=== PATIENT | female | born 1945 | race Caucasian/White ===

== ENCOUNTER 2018-09-17 18:43 | Emergency (ER) | payer MEDICARE ==
[2018-09-17 19:14] VITALS: BP 145/65
--- NOTE | 2018-09-17 19:17 | UC ---
Lower Extremity/Ankle HPI - HPI Summary HPI Summary: RIGHT ANKLE INJURY. PAIN OUTER ASPECT. PT SLIPPED WHILE GETTING ON A HORSE THIS EVENING AND ROLLED HER ANKLE - History of Current Complaint Chief Complaint: UCLowerExtremity Stated Complaint: RIGHT ANKLE INJURY Time Seen by Provider: 09/17/18 19:07 Hx Obtained From: Patient ?: No Onset/Duration: Sudden Onset, Lasting Hours Severity Initially: Severe Severity Currently: Severe Pain Intensity: 7 Aggravating Factor(s): Standing, Ambulation Alleviating Factor(s): Rest Able to Bear Weight: No - Allergies/Home Medications Allergies/Adverse Reactions: Allergies Allergy/AdvReac Type Severity Reaction Status Date / Time Sulfa (Sulfonamide Allergy Unknown GI Upset Verified 09/17/18 18:58 Antibiotics) Home Medications: Home Medications Aspirin 81 mg CHEW TAB* [Aspirin Low Dose TAB*] 81 mg PO DAILY 09/17/18 [ History Confirmed 09/17/18] Atorvastatin* [Lipitor*] 20 mg PO DAILY 09/17/18 [History Confirmed 09/17/18] Cholecalciferol TAB* [Vitamin D TAB*] 1,000 unit PO DAILY 09/17/18 [History Confirmed 09/17/18] Diclofenac Sodium 50 mg PO BID 09/17/18 [History Confirmed 09/17/18] Fesoterodine (NF) [Toviaz (NF)] 8 mg PO DAILY 09/17/18 [History Confirmed ] Metoprolol Succinate [Toprol Xl] 25 mg PO DAILY 09/17/18 [History Confirmed ] Multivit-Min/Iron/Folic/Lutein [Centrum Silver Women Tablet] 1 each PO 09/17/18 [History] Venlafaxine EXT RELEASE CAP* [Effexor Xr CAP*] 37.5 mg PO DAILY 09/17/18 [ History Confirmed 09/17/18] PMH/Surg Hx/FS Hx/Imm Hx Previously Healthy: Yes - Surgical History Surgical History: Yes Surgery Procedure, Year, and Place: LEFT BREAST LUMPECTOMY. LEFT KNEE REPLACEMENT. FRACTURE PATELLA. KIDNEY STONE LIPOTRIPSY - Family History Known Family History: Positive: Hypertension - Social History Alcohol Use: Occasionally Substance Use Type: None Smoking Status (MU): Never Smoked Tobacco Review of Systems All Other Systems Reviewed And Are Negative: Yes Musculoskeletal: Positive: Arthralgia, Edema, Myalgia Physical Exam Appearance: Well-Appearing, Pain Distress, Obese Vital Signs: Initial Vital Signs Temp 97.8 F 09/17/18 19:04 Pulse 69 09/17/18 19:04 Resp 18 09/17/18 19:04 BP 145/65 09/17/18 19:04 Pulse Ox 98 09/17/18 19:04 Vital Signs Reviewed: Yes Eye Exam: Normal ENT Exam: Normal Dental Exam: Normal Neck exam: Normal Respiratory Exam: Normal Cardiovascular Exam: Normal Abdominal Exam: Normal Musculoskeletal: Positive: Strength Limited @ - hard to bear weight, ROM Limited @ - due to pain in eversion, Edema @ - laeral aspect Neurological Exam: Normal Psychological Exam: Normal Skin Exam: Normal Lower Extremity Course/Dx - Course Course Of Treatment: hx obtained, exam performed, meds reviewed, xray obtained. - Differential Dx/Diagnosis Differential Diagnosis/HQI/PQRI: Contusion, Dislocation, Fracture (Closed), Sprain, Strain Provider Diagnosis: Right ankle sprain Discharge - Sign-Out/Discharge Documenting (check all that apply): Patient Departure All imaging exams completed and their final reports reviewed: No Studies - Discharge Plan Condition: Stable Disposition: HOME Patient Education Materials: Ankle Sprain (ED) Referrals: Marsha Landon MD [Primary Care Provider] - Additional Instructions: 1. ice for 24 hours, 2. Continue with Naproxen as needed. 3. Jun wrap for swelling and elevate the foot 4. Warm water soaks and strengthening as we talked about with resistance bands and towel scrunches, can start in 2-3 days 5. Follow up if not improving - Billing Disposition and Condition Condition: STABLE Disposition: Home
== END 2018-09-17 20:33 | disposition home or self-care (01) ==
LOC: UCCORT 18:43
DX: S93.401A Sprain of unspecified ligament of right ankle, initial encounter (principal); W18.49XA Other slipping, tripping and stumbling without falling, initial encounter; Y93.89 Activity, other specified; Y92.9 Unspecified place or not applicable; Z96.651 Presence of right artificial knee joint
CPT/HCPCS: 99202; G0463

== ENCOUNTER 2019-04-26 19:45 | Emergency (ER) | payer MEDICARE ==
--- OUTSIDE RECORDS SUMMARY | 2019-04-26 19:54 | XMS REPORT | Continuity of Care Document ---
:1945 External Reference #:[id number] Author Name Martha Orlando, HUMAN RESOURCES FILE CLERK Address [address] [place] [id number] Care Team Providers Name Role Phone Yeimy Jackson MD - Hematology & Care Team Information Lens Examiner Oncology Gray Krishnan DR - Urology Care Team Information Lens Examiner [phone] Candelario Reich MD - MOHS-Micrographic Care Team Information Lens Examiner Surgery Problems Active Problems Provider Date Urinary incontinence Shannon Jimenez MD Onset: 04/24/2013 Kidney stone Shannon Jimenez MD Onset: 04/09/2011 Vitamin D deficiency Shannon Jimenez MD Onset: 04/07/2010 Degenerative joint disease involving multiple Shannon Jimenez MD Onset: joints Mixed hyperlipidemia Marsha Landon MD Onset: 01/13/2016 Personal history of primary malignant neoplasm Marsha Landon MD Onset: of breast Impaired fasting glycaemia Marsha Landon MD Onset: 04/04/2017 Mild major depression, single episode Marsha Landon MD Onset: 07/28/2017 Chronic kidney disease stage 3 Marsha Landon MD Onset: 02/06/2018 Morbid obesity Marsha Landon MD Onset: 05/23/2018 Social History Type Date Description Comments Sex Unknown ETOH Use Rarely consumes alcohol Tobacco Use Start: Unknown Patient has never smoked Recreational Drug Use Denies Drug Use Smoking Status Reviewed: 04/10/19 Patient has never smoked Allergies, Adverse Reactions, Alerts Active Allergies Reaction Severity Comments Date Sulfa Drugs GI SXS 04/08/2014 Medications Active Medications SIG Qnty Indications Ordering Provider Date Toviaz 1 by mouth every 90tabs R32 Marsha Landon MD 12/28/2018 8mg Tablets ER day 24HR Venlafaxine HCL take 1 tablet by 90tabs F32.0 Marsha Landon MD 2016 75mg mouth every day Tablets Diclofenac Sodium take 1 tablet by 60tabs M15.9 Marsha Landon MD 2015 50mg mouth three Tablets DR times daily with food as needed Metoprolol Succinate 1 by mouth daily 90tabs Z01.818 Marsha Landon MD ER 25mg Tablets ER 24HR E78.2 Atorvastatin Calcium take 1 tablet by 90tabs E78.2 Marsha Landon MD 06/2013 20mg mouth daily Tablets Vitamin D 2 po daily with main E55.9 Marsha Landon MD (Cholecalciferol) meal with 1000Unit meat/fat/oil Tablets Aspirin Ec everyday Marsha Landon MD 81mg Tablets DR Centrum Silver 1 tablet once daily Unknown Tablets as vitamin supplement Immunizations CPT Code Status Date Vaccine Reaction Lot # [id number] Given 12/19/2016 Afluria Or Fluvirin Flu Vac Intramuscular 44501 Given 06/16/2015 Prevnar 13 Pneumococal Conjugate Vaccine Q2037 Given 04/22/2014 Fluvirin Immunization 86914 Given 12/21/2012 Afluria Or Fluvirin Flu Vac Intramuscular 56963 Given 10/06/2011 Zoster (Zostavax) GIVEN AT PHARMACY 55765 Given 04/09/2011 Pneumococcal 23 Immunization Adult Or Immunosuppressed Patient 59453 Given 02/20/2009 Afluria Or Fluvirin Flu Vac Intramuscular 93511 Given 01/31/2008 Afluria Or Fluvirin Flu Vac Intramuscular 81212 Given 01/31/2008 Afluria Or Fluvirin Flu Vac Intramuscular 01035 Given 01/31/2008 Afluria Or Fluvirin Flu Vac Intramuscular 36669 Given 01/09/2007 Afluria Or Fluvirin Flu Vac Intramuscular 85635 Given 12/01/2006 Tetanus And Diptheria Toxoid 7 Years And Older Preserv Free Q2039 Refused 02/06/2018 Flu Vaccine NOS 50870 Refused 02/06/2018 Shingrix (Shingles) Zoster Vaccine HZV, Recombinant , Subunit, Adj Vital Signs Date Vital Result Comment 04/10/2019 1:24pm Weight 370.00 lb Heart Rate 84 /min BP Systolic 130 mmHg BP Diastolic 72 mmHg Respiratory Rate 18 /min Height 66 inches 5'6" BMI (Body Mass Index) 59.7 kg/m2 Results Test Acquired Date Facility Test Result H/L Range Note Lipid Treatment 01/04/2019 [facility] Cholesterol 217 mg/dL High 50-199 1 Triglycerides 136 mg/dL 30-200 HDL 40 mg/dL 35-85 2 Chol/ HDL Ratio 5.4 ratio 3.7-5.6 VLDL 27 mg/dL 2-29 LDL (Calc) 150 mg/dL High 20-99 3 Alt 17 U/L 3-42 Ast 24 U/L 8-42 Basic (BMP) 01/04/2019 [facility] Sodium 140 mmol/L 135-146 4 Potassium 4.2 mmol/L 3.5-5.2 Chloride# 107 mmol/L 97-110 5 Carbon Dioxide 25 mmol/L 24-34 Glucose 107 mg/dL High 70-105 BUN 18 mg/dL 6-26 Creatinine 0.9 mg/dL 0.5-1.4 Calcium 9.1 mg/dL 8.5-10.5 6 Female Egfr 62 >60 7 Male Egfr 82 >60 8 Anion Gap 8 mmol/L 5-15 9 Hemoglobin A1c 01/04/2019 [facility] Hemoglobin A1c 6.2 % High 4.1-5.9 Estimated Average Glucose Calc 131 mg/dL 71-140 Laboratory test finding 01/04/2019 [facility] Vitamin D 25 Hydroxy 36 ng/mL 30-100 10 CBC with Auto Diff-fcmg 01/04/2019 [facility] WBC 6.9 K/uL 4.1-11.0 RBC 4.09 M/uL 4.00-5.40 Hemoglobin 12.9 gm/dL 12.0-16.0 Hematocrit 38.7 % 36.0-47.0 MCV 94.6 fL 80.0-97.0 MCH 31.6 pg 27.0-32.0 MCHC 33.4 g/dL 32.0-36.0 RDW 14.3 % 11.5-14.5 PLT Count 369 K/ul 140-400 MPV 8.0 FL 7.1-10.7 Neutrophil 60.2 % 35.0-75.0 Lymphocyte 28.1 % 16.0-52.0 Monocyte 8.4 % 2.0-10.0 Eosinophil 2.7 % 0.0-5.0 Basophil 0.6 % 0.0-4.0 Abs Neutrophils 4.1 K/uL 2.1-8.0 Abs Lymphocytes 1.9 K/uL 0.8-5.5 Abs Monocytes 0.6 K/uL 0.1-1.0 Abs Eosinophils 0.2 K/uL 0.0-0.5 Abs Basophils 0.0 K/uL 0.0-0.3 1 3 mos 2 Per NCEP ATP III Guidelines: Results lower than 40 mg/dL are suggestive of increased risk for coronary artery disease. Results > or = to 60 mg/dL are considered a negative risk factor. 3 Per NCEP ATP III Guidelines: Normal Population <130 Patients with medical conditions: CHD/DM Optimal: <100 Borderline high: 130-159 High: 160-189 Very high: >189 4 Updated reference range on new analyzer 5 Updated reference range on new analyzer 6 Updated reference range 07-19-2018 7 Concerning GFR Guidelines for Americans: Normal function or mild renal disease, if clinically at risk: >/= 60 mL/min Moderately decreased: 30-59 Severely decreased: 15-29 Renal failure: <15 There is reduced accuracy above 60ml/min/1.73 m squared, but the numeric value may be clinically useful in the near 60 range 8 Concerning GFR Guidelines: Normal function or mild renal disease, if clinically at risk: >/= 60 mL/min Moderately decreased: 30-59 Severely decreased: 15-29 Renal failure: <15 There is reduced accuracy above 60ml/min/1.73 m squared, but the numeric value may be clinically useful in the near 60 range Glomerular Filtration Rate (GFR) is estimated based on the CKD-EPI equation, which assumes a steady state for creatinine as recommended by the National Kidney Disease Education Program in conjunction with the National Institutes of Health and the National Kidney Foundation. Clinical conditions in which it may be necessary to measure GFR by using clearance methods include extremes of age and body size, severe malnutrition or obesity, diseases of skeletal muscle, paraplegia or quadriplegia, vegetarian diet, rapidly changing kidney function, and calculation of the dose of potentially toxic drugs that are excreted by the kidneys. 9 Updated Reference Range -2017 10 Clinical Guidelines for recommended serum 25(OH)Vitamin D Deficient at less than 20 ng/mL Insufficient at 20 to <30 ng/mL Sufficient at 30-100 ng/mL Toxicity at greater than 100 ng/mL Procedures Date Code Description Status 04/10/2019 86092 Electrocardiogram Complete Completed 11/16/2017 [id number] Mammogram Completed 07/07/2016 [id number] Bone Mineral Density Test Completed 06/17/2014 447189995 Bone Mineral Density Test Completed 04/18/2014 [id number] Mammogram Completed Medical Devices Description No Information Available Encounters Type Date Location Provider Dx Diagnosis Office Visit 01/09/2019 [facility] Marsha Landon MD E66.01 Morbid (severe) 1:30p obesity due to excess calories R32 Unspecified urinary incontinence N20.0 Calculus of kidney E55.9 Vitamin D deficiency, unspecified M15.9 Polyosteoarthritis, unspecified E78.2 Mixed hyperlipidemia Z85.3 Personal history of malignant neoplasm of breast R73.01 Impaired fasting glucose F32.0 Major depressive disorder, single episode, mild N18.3 Chronic kidney disease, stage 3 (moderate) Z12.31 Encntr screen mammogram for malignant neoplasm of breast D48.5 Neoplasm of uncertain behavior of skin Z68.43 Body mass index (BMI) 50.0-59.9, adult Assessments Date Code Description Provider 04/10/2019 Z01.818 Encounter for other preprocedural examination Martha Orlando NP 04/10/2019 H26.9 Unspecified cataract Martha Orlando NP 04/10/2019 R32 Urinary incontinence Martha Orlando NP 04/10/2019 N20.0 Kidney stone Martha Orlando NP 04/10/2019 E55.9 Vitamin D deficiency Martha Orlnado NP 04/10/2019 M15.9 Degenerative joint disease involving multiple Martha Orlando NP joints 04/10/2019 E78.2 Mixed hyperlipidemia Martha Orlando NP 04/10/2019 Z85.3 Personal history of malignant neoplasm of Martha Orlando NP breast 04/10/2019 R73.01 Impaired fasting glucose Martha Orlando NP 04/10/2019 F32.0 Major depressive disorder, single episode, Martha Orlando, VELMA mild 04/10/2019 N18.3 Chronic kidney disease, stage 3 (moderate) Martha Orlando, VELMA 01/09/2019 E66.01 Morbid (severe) obesity due to excess Marsha Landon MD calories 01/09/2019 R32 Urinary incontinence Marsha Landon MD 01/09/2019 N20.0 Kidney stone Marsha Landon MD 01/09/2019 E55.9 Vitamin D deficiency Marsha Landon MD 01/09/2019 M15.9 Degenerative joint disease involving multiple Marsha Landon MD joints 01/09/2019 E78.2 Mixed hyperlipidemia Marsha Landon MD 01/09/2019 Z85.3 Personal history of malignant neoplasm of Marsha Landon MD breast 01/09/2019 R73.01 Impaired fasting glucose Marsha Landon MD 01/09/2019 F32.0 Major depressive disorder, single episode, Marsha Landon MD mild 01/09/2019 N18.3 Chronic kidney disease, stage 3 (moderate) Marsha Landon MD 01/09/2019 Z12.31 Encounter for screening mammogram for Marsha Landon MD malignant neoplasm of breast 01/09/2019 D48.5 Neoplasm of uncertain behavior of skin Marsha Landon MD 01/09/2019 Z68.43 Body mass index (BMI) 50.0-59.9, adult Marsha Landon MD 01/04/2019 E78.2 Mixed hyperlipidemia Marsha Landon MD 01/04/2019 E78.2 Mixed hyperlipidemia Schedule, Laboratory 01/04/2019 R73.01 Impaired fasting glucose Marsha Landon MD 01/04/2019 R73.01 Impaired fasting glucose Schedule, Laboratory 01/04/2019 E55.9 Vitamin D deficiency, unspecified Marsha Landon MD 01/04/2019 E55.9 Vitamin D deficiency, unspecified Schedule, Laboratory 01/04/2019 N20.0 Calculus of kidney Marsha Landon MD 01/04/2019 N20.0 Calculus of kidney Schedule, Laboratory 01/04/2019 E78.2 Mixed hyperlipidemia [facility] 01/04/2019 R73.01 Impaired fasting glucose [facility] 01/04/2019 E55.9 Vitamin D deficiency, unspecified [facility] 01/04/2019 N20.0 Calculus of kidney [facility] Plan of Treatment Future Appointment(s):07/05/2019 9:15 am - Schedule, Laboratory at [facility]2019 1:00 pm - Marsha Landon MD at [facility]01/09/2019 - Marsha Landon MDE66.01 Morbid (severe) obesity due to excess caloriesComments:Counseled about strategies for weight loss and the impact of weight on chronic medical problems.Work on healthy lifestyle, with regular exercise (20 min daily will help) and eat a healthy diet. Formal diet plans work best..R32 Urinary incontinenceComments:Mimi is working well. Continue with this.Follow up:6- months follow up with fasting labs prior.N20.0 Kidney stoneNew Labs:CBC with Auto Diff-fcmg, Scheduled: 07/05/19Comments:Follows with Dr. Krishnan as needed.E55.9 Vitamin D deficiencyComments:Continue to say on the Vitamin D supplements daily.M15.9 Degenerative joint disease involving multiple jointsComments:She is taking her medications regularly with benefit. Continue current medication.E78.2 Mixed hyperlipidemiaNew Labs:Lipid Treatment, Scheduled : 07/05/19Comments:Hyperlipidemia is well controlled on metoprolol and atorvastatin. LDL is slightly elevated at 150.Recommended to watch her diet. Continue current medication.Z85.3 Personal history of malignant neoplasm of breastComments:She follows up with Dr. Jackson.R73.01 Impaired fasting glucoseNew Labs:Basic (BMP), Scheduled: 07/05/19Hemoglobin A1c, Scheduled: 07/05/19Comments :She is prediabetic range and stable. Blood sugar was at 107. HbA1c stable at 6.2. Kidney function is normal.F32.0 Major depressive disorder, single episode, mildComments:She is on the venlafaxine with benefit. Continue current medication.N18.3 Chronic kidney disease, stage 3 (moderate)Comments:This has improved. Advised to avoid nsaids like ibuprofen and aleve - erwuywO63.31 Encounter for screening mammogram for malignant neoplasm of breastComments:She is due for her fhzxhslupY25.5 Neoplasm of uncertain behavior of skinComments:We will refer the patient to see Dr. Reich evaluation of lesion under left eye.Referral:Candelario Reich MD, Dermatology/[facility] SuZ68.43 Body mass index ( BMI) 50.0-59.9, adultComments:The BMI is the ratio between height and weight. Goal for a person over age 65 is between 23 and 30. You are overweight. Work on healthy lifestyle, with regular exercise (20 min daily will help) and eat a healthy diet. Formal diet plans work best. Functional Status Description No Information Available Mental Status Description No Information Available Referrals Refer to Dr Reason for Referral Status Appt Date Candelario Reich MD evaluation lesion under left eye out of Received Complete 01/31/2019 country 01/15-01/22 / early afternoon appt / mid week prefered 01/09 ms Faxed all necessary paperwork and refferal for the DrDivya to review and schedule the pt. CHARBEL 01/11 Called and spoke to cleo and scheduled the pt for 01/31 @ 210 pm. CHARBEL 01/11 Called and spoke to the pt and confirmed the apt date, time, and location of the apt. Pt requested it to be mailed to her as well. CHARBEL 01/10 [address] [place] [address] [phone]
--- OUTSIDE RECORDS SUMMARY | 2019-04-26 19:54 | XMS REPORT | Continuity of Care Document ---
:1945 External Reference #:[id number] Author Name Marsha Landon MD Address [address] [place] [id number] Care Team Providers Name Role Phone Yeimy Jackson MD - Hematology & Care Team Information Physician Obstetrician Oncology Gray Krishnan DR - Urology Care Team Information Physician Obstetrician [phone] Candelario Reich MD - [facility]-Micrographic Care Team Information Physician Obstetrician [phone] Surgery Problems Active Problems Provider Date Urinary [...] Code Status Date Vaccine Reaction Lot # [id number] Given 12/19/2016 Afluria Or Fluvirin Flu Vac Intramuscular 25614 Given 06/16/2015 Prevnar 13 Pneumococal Conjugate Vaccine Q2037 Given 04/22/2014 Fluvirin Immunization 32273 Given 12/21/2012 Afluria Or Fluvirin Flu Vac Intramuscular 78337 Given 10/06/2011 Zoster (Zostavax) GIVEN AT PHARMACY 42476 Given 04/09/2011 Pneumococcal 23 Immunization Adult Or Immunosuppressed Patient 45734 Given 02/20/2009 Afluria Or Fluvirin Flu Vac Intramuscular 28704 Given 01/31/2008 Afluria Or Fluvirin Flu Vac Intramuscular 51205 Given 01/31/2008 Afluria Or Fluvirin Flu Vac Intramuscular 60864 Given 01/31/2008 Afluria Or Fluvirin Flu Vac Intramuscular 09833 Given 01/09/2007 Afluria Or Fluvirin Flu Vac Intramuscular 01398 Given 12/01/2006 Tetanus And Diptheria Toxoid 7 Years And Older Preserv Free Q2039 Refused 02/06/2018 Flu Vaccine NOS 05100 Refused 02/06/2018 Shingrix (Shingles) Zoster Vaccine HZV, [...] ng/mL Procedures Date Code Description Status 04/10/2019 73519 Electrocardiogram Complete Completed 11/16/2017 [id number] Mammogram Completed 07/07/2016 [id number] Bone Mineral Density Test Completed 06/17/2014 [id number] Bone Mineral Density Test Completed 04/18/2014 [id number] Mammogram Completed Medical Devices Description No Information Available Encounters Type Date Location Provider Dx Diagnosis Office Visit 01/09/2019 [facility] Marsha Landon MD E66.01 Morbid (severe) 1:30p [...] NP 04/10/2019 N20.0 Kidney stone Martha Orlando SKIP LOADER 04/10/2019 E55.9 Vitamin D deficiency Martha Orlando SKIP LOADER 04/10/2019 M15.9 Degenerative joint disease involving multiple Martha Orlando NP joints 04/10/2019 E78.2 Mixed hyperlipidemia Martha Orlando SKIP LOADER 04/10/2019 Z85.3 Personal history of malignant neoplasm of Martha Orlando SKIP LOADER breast 04/10/2019 R73.01 Impaired fasting glucose Martha Orlando SKIP LOADER 04/10/2019 F32.0 Major depressive disorder, single episode, [...] [facility] 01/04/2019 N20.0 Calculus of kidney [facility] Plan of Treatment Future Appointment(s):07/05/2019 9:15 am - Schedule, Laboratory at [facility]2019 1:00 pm - Marsha Landon MD at [facility]04/10/2019 - Martha Orlando, NPZ01.818 Encounter for other preprocedural examinationComments:Scheduled for: non- emergent, low-risk cataract extraction with IOL Implant at [facility] on 04/24/2019 for left eye, followed by right eye in one week under Monitored Anesthesia Care w/local anesthetic and IV Sedation.Surgeon: cardiovascular contraindications. Is medically sound and with good functional capacity. Pt is medically stable for proposed surgery. They are advisedto take prescribed medications up to and including the night prior to surgery. Advised hold ASA 81 mg now, until cleared by . Will discuss need to hold Diclofenac nowEKG complete: Possible RBBB, is not a contraindication to proceed with procedure. No indication for bloodwork at this time.Follow up:As previously qwvupqvxaV89.9 Unspecified cataractComments: Cataract extraction with IOL Implant at [facility] on 04/24/2019 for left eye with righteye one week later. under Monitored Anesthesia Care w/ local anesthetic and IV Sedation.R32 Urinary incontinenceComments:Continue Toviaz up to and including day prior to exzrzocO83.0 Kidney stoneComments: Continue care as outlined by 55.9 Vitamin D deficiencyComments: Continue supplement up to day prior to xukknlcF87.9 Degenerative joint disease involving multiple jointsComments:Discussed holding Diclofenac one week prior to surgery. Pt will discuss this with further at upcoming appointment tomorrow.E78.2 Mixed hyperlipidemiaComments:Continue Atorvastatin and metoprolol up to day prior to surgery.Z85.3 Personal history of malignant neoplasm of breastComments:Continue care as outlined with .01 Impaired fasting glucoseComments:Prediabetic without treatment nowF32.0 Major depressive disorder, single episode, mildComments:Continue Venlafaxine up to day prior to ummkxyhE55.3 Chronic kidney disease, stage 3 (moderate)Comments:Chronic kidney disease stage 3, moderateRecent labs with Normal GFR. BP: Good control Functional Status Description No Information Available Mental Status Description No Information Available Referrals Refer to Dr Reason for Referral Status Appt Date Candelario Reich MD evaluation lesion under left eye out of Received Complete 01/31/2019 country 01/15-01/22 / early afternoon appt / mid week prefered 01/09 ms Faxed all necessary paperwork and refferal for the Dr. to review and schedule the pt. CHARBEL 01/11 Called and spoke to cleo and scheduled the pt for 01/31 @ 210 pm. CHARBEL 01/11 Called and spoke to the pt and confirmed the apt date, time, and location of the apt. Pt requested it to be mailed to her as well. CHARBEL 01/10 [address] [place] [address] [phone]
[2019-04-26 20:33] VITALS: BP 128/82
[2019-04-26] MEDS ORDERED: Cephalexin CAP* 500 MG PO ONE ×2 (21:21→21:22)
--- NOTE | 2019-04-26 21:22 | UC ---
Lower Extremity/Ankle HPI - HPI Summary HPI Summary: 74-year-old woman comes in with a chief complaint of right foot pain. Yesterday she tripped and fell and she reports a hyper dorsiflexion of her right great toe. She has a lot of pain at that site which it's ecchymotic and blood blister has formed over the area. Pain with any kind of ambulation or movement. She has been using her cane and walking on the side of her foot which does help decrease the pain. She does not have diabetes. - History of Current Complaint Chief Complaint: UCLowerExtremity Stated Complaint: S/P FALL YESTERDAY, RIGHT FOOT INJURY Time Seen by Provider: 04/26/19 20:36 Pain Intensity: 0 - Allergies/Home Medications Allergies/Adverse Reactions: Allergies Allergy/AdvReac Type Severity Reaction Status Date / Time Sulfa (Sulfonamide Allergy Unknown GI Upset Verified 04/26/19 20:27 Antibiotics) PMH/Surg Hx/FS Hx/Imm Hx Previously Healthy: Yes Cardiovascular History: Hypertension - Surgical History Surgical History: Yes Surgery Procedure, Year, and Place: LEFT BREAST LUMPECTOMY. LEFT KNEE REPLACEMENT. FRACTURE PATELLA. KIDNEY STONE LIPOTRIPSY. CATARACTS - Family History Known Family History: Positive: Hypertension - Social History Alcohol Use: Occasionally Substance Use Type: None Smoking Status (MU): Never Smoked Tobacco Review of Systems All Other Systems Reviewed And Are Negative: Yes Constitutional: Positive: Negative Skin: Positive: Other - SEE HPI Eyes: Positive: Negative ENT: Positive: Negative Respiratory: Positive: Negative Cardiovascular: Positive: Negative Gastrointestinal: Positive: Negative Motor: Positive: Negative Neurovascular: Positive: Negative Musculoskeletal: Positive: Other: - SEE HPI Neurological: Positive: Negative Psychological: Positive: Negative Is Patient Immunocompromised?: No Physical Exam Triage Information Reviewed: Yes Appearance: Well-Appearing, Well-Nourished, Pain Distress - Pain with exam and range of motion of the right great toe. Vital Signs: Initial Vital Signs Temp 98.2 F 04/26/19 20:28 Pulse 76 04/26/19 20:28 Resp 16 04/26/19 20:28 BP 128/82 04/26/19 20:28 Pulse Ox 96 04/26/19 20:28 Vital Signs Reviewed: Yes Eye Exam: Normal Eyes: Positive: Conjunctiva Clear Neck: Positive: Supple Respiratory: Positive: No respiratory distress Musculoskeletal: Positive: Other: - Right great toe and the distal first metatarsal region of the right foot is ecchymotic. There is a 1.5 cm diameter blood blister on the dorsal aspect of the proximal great toe. Normal sensation and capillary refill distally. Ankle is nontender to palpation. Neurological: Positive: Alert Psychological: Positive: Age Appropriate Behavior Skin: Positive: Other - Ecchymosis some blood blister right great toe.. Lower Extremity Course/Dx - Course Course Of Treatment: Patient was given a cam boot in clinic by nursing patient Maldonado hernandez after placement of the cam boot. Patient is using her cane for further support. Due to her body habitus we did not give crutches due to the increased risk of falls. Discussed getting a walker to be used at home. With the blood blister started the patient on Keflex as when the blood blister breaks I want to avoid any infection into the fracture site. Plan is to follow-up with orthopedics tomorrow April. - Differential Dx/Diagnosis Provider Diagnosis: Fracture of right great toe Discharge ED - Sign-Out/Discharge Documenting (check all that apply): Patient Departure All imaging exams completed and their final reports reviewed: No - Discharge Plan Condition: Stable Disposition: HOME Prescriptions: Cephalexin CAP* [Keflex CAP*] 500 mg PO TID #20 cap Patient Education Materials: Toe Fracture (ED) Referrals: Marsha Landon MD [Primary Care Provider] - Erik Grider MD [Medical Doctor] - Guy Salinas MD [Medical Doctor] - Additional Instructions: FOLLOW UP WITH ORTHOPEDICS TOMORROW, 04/27/19. GET RECHECKED SOONER IF YOUR CONDITION WORSENS OR ANY QUESTIONS OR CONCERNS. - Billing Disposition and Condition Condition: STABLE Disposition: Home
--- NOTE | 2019-04-27 07:45 | UC ---
- Progress Note Progress Note: Reviewed radiology read of Dr. Gallegos, intracrticular fracture of right great toe. No change in management. Has been referred to orthopedics. Patient Name: BASSEM PETIT Medical Record#: [id number] Ordering Physician: Harman Robertson MD Acct.#: [id number] : 1945 Age: 74 Sex: F Location: [facility] Exam Date: 04/26/192040 ADM Status: [facility] ER Order Information: FOOT RIGHT 3+ VWS Accession Number: [id number] CPT: 86053 INDICATION: Right foot injury. TECHNIQUE: 3 views of the right foot were obtained. FINDINGS: There is diffuse dorsal soft tissue swelling with more focal mass like soft tissue swelling present over the dorsal aspect of the great toe. There is a comminuted oblique fracture involving the proximal half of the proximal phalanx of the great toe extending to the proximal articular margin. There is distraction of fracture fragments. IMPRESSION: COMMINUTED DISPLACED INTRA-ARTICULAR FRACTURE OF THE PROXIMAL PHALANX OF THE GREAT TOE. R0 Preliminary Imaging Read R0 <Electronically signed by Prudencio Gallegos MD in [place]> 04/27/19735 Dictated By: Prudencio Gallegos MD Dictated Date/Time: 04/27/19733 Transcribed Date/Time: 04/27/19733 Copy to: CC:Marsha Landon MD; Harman Robertson MD Imaging - [facility] Imaging - [place] [facility] [address] [address] ph [phone]) ph ([phone]) ph [phone]) This report is only to be considered final once signed by the Provider(s) as displayed in the "<Electronically Signed by >" field (s). Absence of a signature indicates the report is in a draft status and still needs to be finalized. In the event this document was created by someone other than the signing Provider, the individual initiating the document will be listed in the "Entered by:" or "Dictated by:" camara. 1 of 1 Course/Dx - Diagnoses Provider Diagnoses: Fracture of right great toe Discharge ED - Sign-Out/Discharge Documenting (check all that apply): Post-Discharge Follow Up All imaging exams completed and their final reports reviewed: Yes - Discharge Plan Condition: Stable Disposition: HOME Prescriptions: Cephalexin CAP* [Keflex CAP*] 500 mg PO TID #20 cap Patient Education Materials: Toe Fracture (ED) Referrals: Marsha Landon MD [Primary Care Provider] - Guy Salinas MD [Medical Doctor] - Erik Grider MD [Medical Doctor] - Additional Instructions: FOLLOW UP WITH ORTHOPEDICS TOMORROW, 04/27/19. GET RECHECKED SOONER IF YOUR CONDITION WORSENS OR ANY QUESTIONS OR CONCERNS. - Billing Disposition and Condition Condition: STABLE Disposition: Home
== END 2019-04-26 22:04 | disposition home or self-care (01) ==
LOC: UCCORT 19:45
DX: S92.411A Displaced fracture of proximal phalanx of right great toe, initial encounter for closed fracture (principal); I10 Essential (primary) hypertension; Z88.2 Allergy status to sulfonamides; W01.0XXA Fall on same level from slipping, tripping and stumbling without subsequent striking against object, initial encounter; Y92.9 Unspecified place or not applicable
CPT/HCPCS: 99213; A9270-GY; G0463